=== PATIENT | male | born 1965 ===

== ENCOUNTER 2022-04-19 15:18 | Emergency (ER) | payer MEDICAID ==
[~2022-04-19] VITALS: Ht 180.3 cm; Wt 75.0 kg
[2022-04-19] MEDS ORDERED: LIDOCAINE 5% PATCH TOP SCH (21:30)
[2022-04-19] MEDS ORDERED: KETOROLAC 15MG/ML VIAL IM ONE (21:30)
[2022-04-19 23:29] LABS: BASOPHILS % 0.6 % (0.0-2.0); EOSINOPHILS % 2.6 % (0.0-5.0); HEMATOCRIT. 39.4 % (42.0-52.0); HEMOGLOBIN. 13.1 g/dL (14.0-18.0); LYMPHOCYTES % 28.1 % (20.0-50.0); MEAN CORPUSCULAR HEMOGLOBIN 34.5 pg (28.0-32.0); MEAN CORPUSCULAR VOLUME 103.7 fL (80.0-94.0); MONOCYTES % 9.7 % (2.0-8.0); PLATELET 233 x1000/uL (130-400); RED CELL DISTRIBUTION WIDTH 12.7 % (11.6-14.6)
[2022-04-19 23:31] LABS: CHLORIDE 106 mEq/L (98-107)
[2022-04-20 00:23] VITALS: BP 145/84
[2022-04-20] MEDS ORDERED: APIXABAN 5 MG TABLET PO STA (01:00)
== END 2022-04-20 01:23 | disposition home or self-care (01) ==
LOC: ER 15:18
DX: I82.402 Acute embolism and thrombosis of unspecified deep veins of left lower extremity (principal); E11.9 Type 2 diabetes mellitus without complications; I10 Essential (primary) hypertension
CPT/HCPCS: 36415; 73590; 80053; 84484; 85025; 93005; 93971; 96372; 99285; J1885